=== PATIENT | male | born 1970 | race Caucasian/White ===

== ENCOUNTER 2022-01-24 11:46 | Emergency (ER) | payer OTHER, SELFPAY ==
[2022-01-24 11:57] VITALS: BP 122/78; PULSE 86; RESP 16; TEMP 36.4; O2SAT 99
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
== END 2022-01-24 12:41 | disposition home or self-care (01) ==
PROVIDERS: Emergency Provider Nurse Practitioner
DX: T23.222A Burn of second degree of single left finger (nail) except thumb, initial encounter (principal); X15.3XXA Contact with hot saucepan or skillet, initial encounter
CPT/HCPCS: 99213; G0463